=== PATIENT | female | born 1965 | race Caucasian/White ===

== ENCOUNTER → 2020-06-30 | Outpatient (CLI) | payer BC, OTHER ==
--- NOTE | 2020-06-30 14:31 | Diagnostic Imaging Report ---
INDICATION: Right hip pain COMPARISON: None. FINDINGS: 2 views of the right hip were obtained and show no fractures, dislocations, or other acute bony abnormalities. Joint spaces are well maintained throughout. The soft tissues appear unremarkable. No radiopaque foreign bodies are identified. IMPRESSION: Unremarkable radiographic exam of the right hip. Dictated by: Dictated on workstation # [id number]
--- NOTE | 2020-06-30 14:40 | Diagnostic Imaging Report ---
INDICATION: Back pain. COMPARISON: None. FINDINGS: Frontal and lateral radiographic views of the lumbar spine were obtained. Static alignment is preserved. Vertebral body heights are maintained. There is no evidence of acute fracture. There is no evidence of jumped facets. Mild multilevel degenerative changes are noted. Included small bowel loops are nondistended. IMPRESSION: 1. Mild multilevel degenerative changes in lumbar spine, but no radiographic evidence of acute fracture or dislocation. Dictated by: Dictated on workstation # [id number]
== END ==
LOC: RAD FS 14:11
PROVIDERS: ATTEND Nurse Practitioner Family
DX: M47.816 Spondylosis without myelopathy or radiculopathy, lumbar region (principal)
CPT/HCPCS: 72100; 73502

== ENCOUNTER 2020-12-05 08:04 | Emergency (ER) | payer BC ==
[~2020-12-05] VITALS: Ht 167.7 cm; Wt 84.8 kg
[2020-12-05] MEDS ORDERED: ONDANSETRON 4 MG/2 ML (SDV) Z0FRAN IVP STA (08:23)
[2020-12-05] MEDS ORDERED: NS IV 1000 ML 1,000 ML IV STA (08:23)
--- NOTE | 2020-12-05 08:29 | ED GI ---
General Chief Complaint: Abdominal/GI Problems Stated Complaint: BOWEL CONSTIPATION; ABD PAIN/BLOATING Source of Information: Patient History of Present Illness Date Seen by Provider: Dec 05, 2020 Time Seen by Provider: 08:05 Initial Comments 55 yo female presenting with complaint of constipation x 3 days and having hard pellet stools with mucus prior to that. She has diffuse abdominal cramping that is worse in lower abdomen. She also reports having some nausea but no vomiting. She was having some discomfort with urination but denied burning. She states overnight she had been up most the night with discomfort in her belly and not being able to have a bowel movement. She tried using some Dulcolax pills but they did not help. Normally if she gets constipated she will take MiraLAX but she did not have any at home and did not go to buy any to take. She states that she has a history of irritable bowel and goes from diarrhea to constipation. She has felt that she has been more constipated since starting Trintellix around August. She has subjective fever and chills this morning and was not feeling well overall so she came to the emergency department. She did eat a bit better sandwich this morning but states that she had to force herself to finish eating it because she was nauseated. She has not had any actual vomiting but was feeling a little nauseated. She has a history of diverticulosis and prior diverticulitis. She has had surgery on her abdomen with cholecystectomy, hysterectomy and hemorrhoidectomy. Timing/Duration: 3-4 Days Severity/Quality: Cramping Location: Generalized Abdomen (But worse in the lower half of her abdomen) Activities at Onset: None Modifying Factors: Worsens With Movement, Worsens With Palpation Associated Symptoms: No Back Pain, No Chest Pain, No Diaphoresis; Fever/Chills (Subjective), Fatigue (Fatigue today because she has been up all night trying to have a bowel movement and not feeling well); No Headache, No Heartburn; Nausea/Vomiting (Nausea but no vomiting); No Rash, No Shortness of Air; Swelling/Mass in Abdomen (Feels bloated and swollen in her abdomen); No Syncope, No Weakness Allergies and Home Medications Allergies Coded Allergies: Sulfa (Sulfonamide Antibiotics) (Unverified Allergy, Unknown, 12/05/20) Home Medications Amoxicillin/Potassium Clav 1 Each Tablet, 1 EACH PO BID Prescribed by: MIGUEL CAPPS on 12/05/20 1029 Ondansetron 4 Mg Tab.rapdis, 4 MG PO Q6H PRN for NAUSEA/VOMITING Prescribed by: MIGUEL Tracy ENYART on 12/05/20 1029 Polyethylene Glycol 3350 119 Gm Powder, 17 GM PO DAILY PRN for CONSTIPATION-1ST LINE Prescribed by: MIGUEL Tracy ENYART on 12/05/20 1029 Patient Home Medication List Home Medication List Reviewed: Yes Review of Systems Review of Systems Constitutional: chills, fever (Subjective), malaise EENTM: No Symptoms Reported Respiratory: No Symptoms Reported Cardiovascular: No Symptoms Reported; Denies Lightheadedness Gastrointestinal: See HPI Genitourinary: See HPI Musculoskeletal: no symptoms reported Skin: no symptoms reported Psychiatric/Neurological: No Symptoms Reported Endocrine: No Symptoms Reported Hematologic/Lymphatic: No Symptoms Reported Past Amlyiin-Jrofwu-Qgcqcp Hx Patient Social History Tobacco Use?: No Substance use?: No Alcohol Use?: Yes Alcohol Frequency: Once in a while Pt feels they are or have been: No Past Medical History Surgery/Hospitalization HX: Diverticulosis with Diverticulitis, Sinus surgery, Cholecystectomy, Hysterectomy, Hemmorrhoidectomy, Irritable Bowel Syndrome, Hypothyroid Surgeries: Yes Abdominal, Gallbladder, Hysterectomy Respiratory: No Cardiac: No Neurological: No Genitourinary: No Gastrointestinal: Yes Gastroesophageal Reflux, Diverticulosis, Hemorrhoids, Irritable Bowel Musculoskeletal: No Endocrine: Yes Hypothyroidsim HEENT: No Cancer: No Psychosocial: No Integumentary: No Physical Exam Vital Signs Vital Signs - First Documented 12/05/20 08:05 Temp 36.0 Pulse 115 Resp 16 B/P (MAP) 160/99 (119) Pulse Ox 96 O2 Delivery Room Air Capillary Refill : Height/Weight/BMI Height: '" Weight: lbs. oz. kg; BMI Method: General Appearance: WD/WN, no apparent distress HEENT: PERRL/EOMI, pharynx normal Neck: non-tender, full range of motion, supple, normal inspection Respiratory: chest non-tender, lungs clear, normal breath sounds Cardiovascular: normal peripheral pulses, tachycardia Gastrointestinal: soft, no pulsatile mass, abnormal bowel sounds (hypoactive); No guarding, No rebound; tenderness (diffuse mild pain with palpation, worse in lower half of abdomen) Rectal: deferred Extremities: normal range of motion, non-tender, normal capillary refill Neurologic/Psychiatric: educational technology specialist II-XII nml as tested, alert, oriented x 3 Skin: normal color, warm/dry Images 1 - mild diffuse pain with palpation of abdomen, but states it is worse in lower half of abdomen Focused Exam Lactate Level 12/05/20 08:20: Lactic Acid Level 2.50*H Lactic Acid Level Laboratory Tests Test 12/05/20 08:20 Lactic Acid Level 2.50 MMOL/L (0.50-2.00) *H Progress/Results/Core Measures Results/Orders Lab Results Laboratory Tests Test 12/05/20 08:20 12/05/20 08:32 Range/Units White Blood Count 10.1 4.3-11.0 10^3/uL Red Blood Count 4.06 L 4.35-5.85 10^6/uL Hemoglobin 13.1 11.5-16.0 G/DL Hematocrit 40 35-52 % Mean Corpuscular Volume 97 80-99 FL Mean Corpuscular Hemoglobin 32 25-34 PG Mean Corpuscular Hemoglobin Concent 33 32-36 G/DL Red Cell Distribution Width 14.2 10.0-14.5 % Platelet Count 224 130-400 10^3/uL Mean Platelet Volume 10.9 H 7.4-10.4 FL Immature Granulocyte % (Auto) 0 % Neutrophils (%) (Auto) 78 H 42-75 % Lymphocytes (%) (Auto) 10 L 12-44 % Monocytes (%) (Auto) 8 0-12 % Eosinophils (%) (Auto) 3 0-10 % Basophils (%) (Auto) 1 0-10 % Neutrophils # (Auto) 7.9 H 1.8-7.8 X 10^3 Lymphocytes # (Auto) 1.1 1.0-4.0 X 10^3 Monocytes # (Auto) 0.8 0.0-1.0 X 10^3 Eosinophils # (Auto) 0.3 0.0-0.3 10^3/uL Basophils # (Auto) 0.1 0.0-0.1 10^3/uL Immature Granulocyte # (Auto) 0.0 0.0-0.1 10^3/uL Sodium Level 137 135-145 MMOL/L Potassium Level 4.1 3.6-5.0 MMOL/L Chloride Level 103 98-107 MMOL/L Carbon Dioxide Level 22 21-32 MMOL/L Anion Gap 12 5-14 MMOL/L Blood Urea Nitrogen 18 7-18 MG/DL Creatinine 0.63 0.60-1.30 MG/DL Estimat Glomerular Filtration Rate > 60 BUN/Creatinine Ratio 29 Glucose Level 177 H 70-105 MG/DL Lactic Acid Level 2.50 *H 0.50-2.00 MMOL/L Calcium Level 8.9 8.5-10.1 MG/DL Corrected Calcium 8.8 8.5-10.1 MG/DL Total Bilirubin 0.2 0.1-1.0 MG/DL Aspartate Amino Transf (AST/SGOT) 27 5-34 U/L Alanine Aminotransferase (ALT/SGPT) 29 0-55 U/L Alkaline Phosphatase 126 40-136 U/L Total Protein 6.8 6.4-8.2 GM/DL Albumin 4.1 3.2-4.5 GM/DL Lipase 20 8-78 U/L Urine Color YELLOW Urine Clarity CLEAR Urine pH 5.5 5-9 Urine Specific [place] 1.025 H 1.016-1.022 Urine Protein NEGATIVE NEGATIVE Urine Glucose (UA) NEGATIVE NEGATIVE Urine Ketones NEGATIVE NEGATIVE Urine Nitrite NEGATIVE NEGATIVE Urine Bilirubin NEGATIVE NEGATIVE Urine Urobilinogen 0.2 < = 1.0 MG/DL Urine Leukocyte Esterase NEGATIVE NEGATIVE Urine RBC (Auto) 2+ H NEGATIVE Urine RBC 0-2 /HPF Urine WBC NONE /HPF Urine Squamous Epithelial Cells 0-2 /HPF Urine Crystals NONE /LPF Urine Bacteria NEGATIVE /HPF Urine Casts NONE /LPF Urine Mucus NEGATIVE /LPF Urine Culture Indicated NO My Orders Orders - MIGUEL CAPPS MD Comprehensive Metabolic Panel (12/05/20 08:21) Lipase (12/05/20 08:21) Ua Culture If Indicated (12/05/20 08:21) Ed Iv/Invasive Line Start (12/05/20 08:21) Cbc With Automated Diff (12/05/20 08:21) Ct Abdomen/Pelvis W (12/05/20 08:21) Lactic Acid Analyzer (12/05/20 08:21) Ns Iv 1000 Ml (Sodium Chloride 0.9%) (12/05/20 08:23) Ondansetron Injection (Zofran Injectio (12/05/20 08:23) Iohexol Injection (Omnipaque 350 Mg/Ml 1 (12/05/20 09:00) Received Contrast (Hold Metformin- Contr (12/05/20 09:00) Sodium Chloride Flush (Catheter Flush Sy (12/05/20 09:00) Ns (Ivpb) (Sodium Chloride 0.9% Ivpb Bag (12/05/20 09:00) Medications Given in ED Current Medications Medications Dose Ordered Sig/Jayce Route Start Time Stop Time Status Last Admin Dose Admin Iohexol 100 ml ONCE ONCE IV 12/05/20 09:00 12/05/20 09:01 DC 12/05/20 09:19 100 ML Sodium Chloride 10 ml NEEDED PRN IV 12/05/20 09:00 12/05/20 10:42 DC 12/05/20 09:19 10 ML Sodium Chloride 100 ml ONCE ONCE IV 12/05/20 09:00 12/05/20 09:01 DC 12/05/20 09:19 80 ML Vital Signs/I&O 12/05/20 12/05/20 08:05 10:34 Temp 36.0 36.0 Pulse 115 93 Resp 16 18 B/P (MAP) 160/99 (119) 146/93 (119) Pulse Ox 96 96 O2 Delivery Room Air Room Air Progress Progress Note #1: Progress Note Check labs, urine, lactic acid and CT scan of abdomen pelvis. Give IVF for hydration, Zofran for nausea. Since she is tachycardic on exam and complaining of diffuse abdominal cramping and bloating with mucus mixed in with her stools prior to the constipation and a history of diverticulosis/diverticulitis we will obtain blood work with a lactic acid to evaluate for ischemic bowel or sepsis. CT scan will help to differentiate if this is constipation alone or if there is inflammation of the colon or bowel. Differential diagnosis includes constipation, diverticulitis, colitis, uti, pyelonephritis, ischemic bowel, abdominal mass/obstruction, small bowel obstruction Progress Note #2: Time: 08:56 Progress Note Lab called and stated her Lactic acid was slightly elevated to 2.5. She does sh ow some signs of dehydration which can elevate this. Her UA has elevated specific gravity of 1.025 but no sign of infection. Her CBC has normal WBC count of 10.1 but she does have a slight left shift present with 78 % neutrophils. She has Chemistry showing no acute significant abnormality other than glucose is slightly elevated to 170 but pt did say she ate a peanut butter sandwich just before coming to the ED. Normal BUN, Cr and GFR >60. Will see what her CT scan shows and she may need antibiotics for a possible diverticulitis or may j ust need to drink more fluids and take Miralax to help with her stools. Progress Note #3: Progress Note CT scan shows bowel wall thickening at sigmoid area and Radiologist recommends colonoscopy to follow up for evaluation of colon for mass/cancer. Since she had reported pellets of stool and mucus prior to constipation will have her take antibiotic for possible early diverticulitis but also supervisor counseling and guidance pt to follow up for colonoscopy to evaluate the bowel wall thickening. Use Augmentin for treat for diverticulitis but would also have a side effect of possible diarrhea. Stressed use of MiraLAX and advised that she can use it with a dose every 1 to 2 hours today to get her bowels to move. Once she is having bowel movements she ca n hold Miralax and take it daily. Diagnostic Imaging Diagonstic Imaging: CT Plain Films/CT/US/NM/MRI: abdomen, pelvis Comments [facility]. [place], [place] NAME: DYLAN [facility]ERS [facility] REC#: [id number] PT STATUS: REG ER : 1965 PHYSICIAN: MIGUEL CAPPS MD ADMIT DATE: 12/05/20/ER FS Draft Date of Exam:12/05/20 CT ABDOMEN/PELVIS W EXAMINATION: CT abdomen and pelvis with intravenous contrast. TECHNIQUE: Multiple contiguous axial images were obtained through the abdomen and pelvis after the uneventful administration of intravenous contrast. All CT scans use one or more of the following dose optimizing techniques: automated exposure control, MA and/or KvP adjustment based on patient size and exam type or iterative reconstruction. HISTORY: Abdominal pain COMPARISON: None available. FINDINGS: Limited views of the lower thorax are unremarkable. The liver is normal without focal lesion. There is no biliary ductal dilation. Gallbladder surgically absent. Pancreas is normal. Spleen is normal. Adrenal glands are normal. The kidneys are normal. There is no hydronephrosis. Urinary bladder is normal. There is focal area of wall thickening at the rectosigmoid junction. Remaining bowel is normal in caliber without obstruction or inflammation. Large amount of stool is present in the colon. No free fluid or air. No abdominal or pelvic lymphadenopathy. Aorta is normal in caliber without aneurysm. There are no suspicious osseus lesions. IMPRESSION: 1. Focal wall thickening at the rectosigmoid junction, colonoscopic evaluation is recommended to exclude an underlying malignancy. Dictated on workstation # [id number] Dict: 12/05/2024 Trans: 12/05/20 0929 SUDHA [id number] Interpreted by: HOA REEVES MD Electronically signed by: Reviewed: Reviewed by Me Departure Impression Primary Impression: Constipation Qualified Codes: K59.00 - Constipation, unspecified Additional Impressions: Abdominal cramping, generalized Sigmoid thickening Disposition: HOME, SELF-CARE Condition: Stable Departure-Patient Inst. Decision time for Depature: 10:21 Referrals: FARHAT GARCIA MAXWELL MD (PCP/Family) Primary Care Physician Patient Instructions: Constipation, Adult ED, Abdominal Pain, Adult ED Add. Discharge Instructions: For the bowel wall thickening take Augmentin (Amoxicillin/clavulanic acid) as an antibiotic to treat for possible early diverticulitis. You MUST also call your doctor or a surgeon for follow up and to get an updated colonoscopy for this bowel wall thickening of the sigmoid area of your colon. If it is more than just some early infection then you would need the colonoscopy to evaluate and rule out a mass or tumor in that area of the colon. For the constipation you may take Miralax 17 grams or 1 capful in 8 ounces of water or juice. Today you could take this every 1-2 hours until you have results and start having your bowels move. Then you could decrease to once a day. Use the Zofran dissolving nausea medicine to help keep your stomach settled and ensure you are drinking and getting your bowels moving. If you develop fever over 101 F, uncontrolled vomiting despite medicine or uncontrollable pain and still not having your bowels move after 12-24 hours then get rechecked All discharge instructions reviewed with patient and/or family. Voiced understanding. Scripts Polyethylene Glycol 3350 (Miralax) 119 Gm Powder 17 GM PO DAILY PRN for CONSTIPATION-1ST LINE for 30 Days, #510 GM 0 Refills Prov: MIGUEL CAPPS MD 12/05/20 Amoxicillin/Potassium Clav (Amox Tr-K Clv 875-125 mg Tab) 1 Each Tablet 1 EACH PO BID for bowel thickening for 10 Days, #20 TAB 0 Refills Prov: MIGUEL CAPPS MD 12/05/20 Ondansetron (Ondansetron Odt) 4 Mg Tab.rapdis 4 MG PO Q6H PRN for NAUSEA/VOMITING for 2 Days, #8 TAB 0 Refills Prov: MIGUEL CAPPS MD 12/05/20 MIGUEL CAPPS MD Dec 05, 2020 08:29
[2020-12-05 08:34] LABS: HEMATOCRIT 40 % (35-52); HEMOGLOBIN 13.1 G/DL (11.5-16.0); MEAN CORPUSCULAR HEMOGLOBIN 32 PG (25-34); MEAN CORPUSCULAR HGB CONC 33 G/DL (32-36); MEAN CORPUSCULAR VOLUME 97 FL (80-99); MEAN PLATELET VOLUME 10.9 FL (7.4-10.4); NEUTROPHILS % (AUTO) 78 % (42-75); PLATELET COUNT 224 10^3/uL (130-400); WHITE BLOOD COUNT 10.1 10^3/uL (4.3-11.0)
[2020-12-05 08:35] LABS: BASOPHILS # (AUTO) 0.1 10^3/uL (0.0-0.1); BASOPHILS % (AUTO) 1 % (0-10); EOSINOPHILS # (AUTO) 0.3 10^3/uL (0.0-0.3); EOSINOPHILS % (AUTO) 3 % (0-10); LYMPHOCYTES # (AUTO) 1.1 X 10^3 (1.0-4.0); LYMPHOCYTES % (AUTO) 10 % (12-44); MONOCYTES # (AUTO) 0.8 X 10^3 (0.0-1.0); MONOCYTES % (AUTO) 8 % (0-12); NEUTROPHILS # (AUTO) 7.9 X 10^3 (1.8-7.8)
[2020-12-05 08:44] LABS: BILIRUBIN,URINE NEGATIVE (NEGATIVE); CLARITY,URINE CLEAR; COLOR,URINE YELLOW; GLUCOSE, URINE (UA) NEGATIVE (NEGATIVE); KETONES,URINE NEGATIVE (NEGATIVE); LEUKOCYTE ESTERASE ,URINE NEGATIVE (NEGATIVE); NITRITE,URINE NEGATIVE (NEGATIVE); PH,URINE 5.5 (5-9); PROTEIN,URINE NEGATIVE (NEGATIVE)
[2020-12-05 08:51] LABS: RBC,URINE 0-2 /HPF
[2020-12-05 08:52] LABS: BACTERIA,URINE NEGATIVE /HPF; SQUAMOUS EPITHELIAL CELL,UR 0-2 /HPF
[2020-12-05 08:54] LABS: ALANINE AMINOTRANSFERASE 29 U/L (0-55); ALBUMIN 4.1 GM/DL (3.2-4.5); ALKALINE PHOSPHATASE 126 U/L (40-136); BILIRUBIN,TOTAL 0.2 MG/DL (0.1-1.0); BUN/CREATININE RATIO 29; CALCIUM 8.9 MG/DL (8.5-10.1); CARBON DIOXIDE 22 MMOL/L (21-32); CHLORIDE 103 MMOL/L (98-107); CREATININE SERUM 0.63 MG/DL (0.60-1.30); GFR ESTIMATED > 60; GLUCOSE 177 MG/DL (70-105); LIPASE 20 U/L (8-78); POTASSIUM 4.1 MMOL/L (3.6-5.0); SODIUM 137 MMOL/L (135-145); TOTAL PROTEIN 6.8 GM/DL (6.4-8.2)
[2020-12-05] MEDS ORDERED: CATHETER FLUSH 10 ML SYR IV PRN (09:00)
[2020-12-05] MEDS ORDERED: NS 100 ML (IVPB) BAG IV ONE (09:00)
[2020-12-05] MEDS ORDERED: IOHEXOL 350 MG/ML 100 ML (OMNIPAQUE 350) VIAL IV ONE (09:00)
[2020-12-05] MEDS ORDERED: HOLD METFORMIN - RECEIVED CONTRAST 20 ML VIAL IV SCH (09:00)
--- NOTE | 2020-12-05 09:29 | Diagnostic Imaging Report ---
EXAMINATION: CT abdomen and pelvis with intravenous contrast. TECHNIQUE: Multiple contiguous axial images were obtained through the abdomen and pelvis after the uneventful administration of intravenous contrast. All CT scans use one or more of the following dose optimizing techniques: automated exposure control, MA and/or KvP adjustment based on patient size and exam type or iterative reconstruction. HISTORY: Abdominal pain COMPARISON: None available. FINDINGS: Limited views of the lower thorax are unremarkable. The liver is normal without focal lesion. There is no biliary ductal dilation. Gallbladder surgically absent. Pancreas is normal. Spleen is normal. Adrenal glands are normal. The kidneys are normal. There is no hydronephrosis. Urinary bladder is normal. There is focal area of wall thickening at the rectosigmoid junction. Remaining bowel is normal in caliber without obstruction or inflammation. Large amount of stool is present in the colon. No free fluid or air. No abdominal or pelvic lymphadenopathy. Aorta is normal in caliber without aneurysm. There are no suspicious osseus lesions. IMPRESSION: 1. Focal wall thickening at the rectosigmoid junction, colonoscopic evaluation is recommended to exclude an underlying malignancy. Dictated by: Dictated on workstation # [id number]
[2020-12-05] MEDS ORDERED: ONDA4TAB11 PO (10:29)
[2020-12-05] MEDS ORDERED: POLY119P5 PO (10:29)
[2020-12-05] MEDS ORDERED: AMOX1TAB12 PO (10:29)
[2020-12-05 10:34] VITALS: BP 146/93
== END 2020-12-05 10:34 | disposition home or self-care (01) ==
LOC: EDUNIT# 08:04 → ER FS 08:07
DX: K59.00 Constipation, unspecified (principal); K63.89 Other specified diseases of intestine
CPT/HCPCS: 36415; 74177; 80053; 81000; 83605; 83690; 85025

== ENCOUNTER 2020-12-06 22:13 | Inpatient (IN) | payer BC ==
[~2020-12-06] VITALS: Ht 167.2 cm; Wt 85.6 kg
[~2020-12-06 22:13] MED LIST: AMOX1TAB12 PO; ONDA4TAB11 PO; POLY119P5 PO
--- NOTE | 2020-12-06 22:38 | ED General ---
General Chief Complaint: Abdominal/GI Problems Stated Complaint: ABD PAIN Nursing Triage Note: Patient was seen in the ER yesterday for the same issue. Patient states that she had a CT done and it stated that she had a lot of feces. Patient went home and did stool softners, Fleet enemas and mirilax with no result. Patient does not know when her last bowel movement was. Patient states that her pain is a 10 on the 1-10 pain scale. History of Present Illness Date Seen by Provider: Dec 06, 2020 Time Seen by Provider: 22:37 Initial Comments Patient presenting to the emergency department for evaluation of worsening abdominal pain that has been going on for 5 days and she says it is constant crampy and worse in the bilateral lower quadrants and mid abdomen. She says she has had nausea but no vomiting. She says she has only had very small bowel movements but no regular bowel movements in the last 7 days. She was seen in this emergency department yesterday and had a CT scan done which showed a large amount of constipation and stool with possible rectosigmoid mass. Radiologist recommended colonoscopy. Patient was discharged on Augmentin Zofran and MiraLAX and the patient has been doing enemas and taking magnesium at home and she says she has had no relief in her constipation or abdominal pain. She is dry heaving in the room. Allergies and Home Medications Allergies Coded Allergies: Sulfa (Sulfonamide Antibiotics) (Unverified Allergy, Unknown, 12/05/20) Home Medications Amoxicillin/Potassium Clav 1 Each Tablet, 1 EACH PO BID Prescribed by: MIGUEL Tracy ENYART on 12/05/20 1029 Ondansetron 4 Mg Tab.rapdis, 4 MG PO Q6H PRN for NAUSEA/VOMITING Prescribed by: MIGUEL Tracy ENYART on 12/05/20 1029 Polyethylene Glycol 3350 119 Gm Powder, 17 GM PO DAILY PRN for CONSTIPATION-1ST LINE Prescribed by: MIGUEL Tracy ENYART on 12/05/20 1029 Patient Home Medication List Home Medication List Reviewed: Yes Review of Systems Review of Systems Constitutional: no symptoms reported EENTM: no symptoms reported Respiratory: no symptoms reported Cardiovascular: no symptoms reported Gastrointestinal: abdominal pain, constipation, nausea Genitourinary: no symptoms reported Musculoskeletal: no symptoms reported Skin: no symptoms reported Psychiatric/Neurological: No Symptoms Reported All Other Systems Reviewed Negative Unless Noted: Yes Past Jzzhvza-Tjquvf-Qfspbr Hx Patient Social History Tobacco Use?: No Substance use?: No Alcohol Use?: No Pt feels they are or have been: No Past Medical History Surgery/Hospitalization HX: Diverticulosis with Diverticulitis, Sinus surgery, Cholecystectomy, Hysterectomy, Hemmorrhoidectomy, Irritable Bowel Syndrome, Hypothyroid Surgeries: Yes Abdominal, Gallbladder, Hysterectomy Respiratory: No Cardiac: No Neurological: No Genitourinary: No Gastrointestinal: Yes Gastroesophageal Reflux, Diverticulosis, Hemorrhoids, Irritable Bowel Musculoskeletal: No Endocrine: Yes Hypothyroidsim HEENT: No Cancer: No Psychosocial: No Integumentary: No Physical Exam Vital Signs Vital Signs - First Documented 12/06/20 22:17 Temp 36.1 Pulse 111 Resp 16 B/P (MAP) 130/83 (99) Pulse Ox 96 O2 Delivery Room Air Capillary Refill : Less Than 3 Seconds Height, Weight, BMI Height: '" Weight: lbs. oz. kg; 30.00 BMI Method: General Appearance: No Apparent Distress, Other (Dry heaving) HEENT: PERRL/EOMI Neck: Supple Respiratory: Lungs Clear, No Respiratory Distress Cardiovascular: Regular Rate, Rhythm Gastrointestinal: Soft, Other (Diffuse lower abdominal tenderness to palpation with no rebound or guarding) Rectal: Other (No stool palpated and no impaction noted on rectal exam. No significant tenderness to palpation) Back: Normal Inspection Extremity: Normal Capillary Refill Neurologic/Psychiatric: Alert, Oriented x3 Skin: Warm/Dry Progress/Results/Core Measures Suspected Sepsis SIRS Temperature: Pulse: 111 Respiratory Rate: 16 Laboratory Tests 12/06/20 22:42: White Blood Count 15.4H Blood Pressure 130 /83 Mean: 99 Laboratory Tests 12/06/20 22:42: Platelet Count 261 Results/Orders Lab Results Laboratory Tests Test 12/06/20 22:42 Range/Units White Blood Count 15.4 H 4.3-11.0 10^3/uL Red Blood Count 4.32 L 4.35-5.85 10^6/uL Hemoglobin 13.7 11.5-16.0 G/DL Hematocrit 42 35-52 % Mean Corpuscular Volume 98 80-99 FL Mean Corpuscular Hemoglobin 32 25-34 PG Mean Corpuscular Hemoglobin Concent 32 32-36 G/DL Red Cell Distribution Width 14.5 10.0-14.5 % Platelet Count 261 130-400 10^3/uL Mean Platelet Volume 11.3 H 7.4-10.4 FL Immature Granulocyte % (Auto) 0 % Neutrophils (%) (Auto) 71 42-75 % Lymphocytes (%) (Auto) 15 12-44 % Monocytes (%) (Auto) 11 0-12 % Eosinophils (%) (Auto) 2 0-10 % Basophils (%) (Auto) 0 0-10 % Neutrophils # (Auto) 10.9 H 1.8-7.8 X 10^3 Lymphocytes # (Auto) 2.3 1.0-4.0 X 10^3 Monocytes # (Auto) 1.7 H 0.0-1.0 X 10^3 Eosinophils # (Auto) 0.3 0.0-0.3 10^3/uL Basophils # (Auto) 0.1 0.0-0.1 10^3/uL Immature Granulocyte # (Auto) 0.1 0.0-0.1 10^3/uL Smear Scan My Orders Orders - DAISY ESPINO DO Cbc With Automated Diff (12/06/20 22:38) Comprehensive Metabolic Panel (12/06/20 22:38) Lipase (12/06/20 22:38) Iv/Invasive Line Insertion .IV start (12/06/20 22:38) Ns Iv 1000 Ml (Sodium Chloride 0.9%) (12/06/20 22:45) Ondansetron Injection (Zofran Injectio (12/06/20 22:45) Hydromorphone Injection (Dilaudid Inject (12/06/20 22:45) Manual Differential (12/06/20 22:42) Medications Given in ED Current Medications Medications Dose Ordered Sig/Jayce Route Start Time Stop Time Status Last Admin Dose Admin Hydromorphone HCl 1 mg ONCE ONCE IVP 12/06/20 22:45 12/06/20 22:46 DC 12/06/20 22:49 1 MG Ondansetron HCl 4 mg ONCE ONCE IVP 12/06/20 22:45 12/06/20 22:46 DC 12/06/20 22:47 4 MG Vital Signs/I&O 12/06/20 22:17 Temp 36.1 Pulse 111 Resp 16 B/P (MAP) 130/83 (99) Pulse Ox 96 O2 Delivery Room Air Capillary Refill : Less Than 3 Seconds Blood Pressure Mean: 99 Progress Note : Progress Note Patient here essentially for failure of outpatient treatment and intractable pain. She has unrelieved constipation and may have a rectosigmoid mass. Patient does have slightly worsened leukocytosis but no fever. Her pain has not changed in location or character so I will not pursue repeat imaging especially since her abdominal exam is benign with no focal tenderness rebound or guarding. I spoke to Dr. LÓPEZ of general surgery and he agreed to accept patient for bowel prep tomorrow in anticipation of possible colonoscopy. I spoke to Dr. Milton and she agreed to consult on patient for medical perspective in regards to her hypothyroidism. Patient has improved pain in the emergency department and she has had no active vomiting so she will be transferred in stable condition to [place] [facility]. Departure Impression Primary Impression: Intractable abdominal pain Additional Impressions: Failure of outpatient treatment Leukocytosis Constipation Disposition: ADMITTED INPATIENT Condition: Improved Transfer Transfer Reason: Exceeds level of care Transfer Facility: [facility] Method of Transfer: EMS Departure-Patient Inst. Referrals: SELF,JODI PRICE (PCP/Family) Primary Care Physician DAISY ESPINO DO Dec 06, 2020 22:38
[2020-12-06] MEDS ORDERED: NS IV 1000 ML 1,000 ML IV SCH (22:45)
[2020-12-06] MEDS ORDERED: ONDANSETRON 4 MG/2 ML (SDV) Z0FRAN IVP ONE (22:45)
[2020-12-06] MEDS ORDERED: HYDROmorphone 2 MG/ML VIAL (DILAUDID) IVP ONE (22:45)
[2020-12-06 23:13] LABS: BASOPHILS % (AUTO) 0 % (0-10); EOSINOPHILS % (AUTO) 2 % (0-10); HEMATOCRIT 42 % (35-52); HEMOGLOBIN 13.7 G/DL (11.5-16.0); LYMPHOCYTES % (AUTO) 15 % (12-44); MEAN CORPUSCULAR HEMOGLOBIN 32 PG (25-34); MEAN CORPUSCULAR HGB CONC 32 G/DL (32-36); MEAN CORPUSCULAR VOLUME 98 FL (80-99); MEAN PLATELET VOLUME 11.3 FL (7.4-10.4); MONOCYTES % (AUTO) 11 % (0-12); NEUTROPHILS % (AUTO) 71 % (42-75); PLATELET COUNT 261 10^3/uL (130-400); WHITE BLOOD COUNT 15.4 10^3/uL (4.3-11.0)
[2020-12-06 23:14] LABS: BASOPHILS # (AUTO) 0.1 10^3/uL (0.0-0.1); EOSINOPHILS # (AUTO) 0.3 10^3/uL (0.0-0.3); LYMPHOCYTES # (AUTO) 2.3 X 10^3 (1.0-4.0); MONOCYTES # (AUTO) 1.7 X 10^3 (0.0-1.0); NEUTROPHILS # (AUTO) 10.9 X 10^3 (1.8-7.8)
[2020-12-06 23:41] LABS: CHLORIDE 100 MMOL/L (98-107); POTASSIUM 4.3 MMOL/L (3.6-5.0); SODIUM 138 MMOL/L (135-145)
[2020-12-06 23:42] LABS: BILIRUBIN,TOTAL 0.5 MG/DL (0.1-1.0); BUN/CREATININE RATIO 13; CARBON DIOXIDE 28 MMOL/L (21-32); GFR ESTIMATED > 60; GLUCOSE 139 MG/DL (70-105)
[2020-12-06 23:43] LABS: ALANINE AMINOTRANSFERASE 70 U/L (0-55); ALBUMIN 4.1 GM/DL (3.2-4.5); ALKALINE PHOSPHATASE 136 U/L (40-136); TOTAL PROTEIN 6.9 GM/DL (6.4-8.2)
[2020-12-06 23:56] LABS: LYMPHOCYTES % (MANUAL) 13 %; NEUTROPHILS % (MANUAL) 73 %
[2020-12-06 23:57] LABS: ATYPICAL LYMPHOCYTES 1 %; BASOPHILS % (MANUAL) 1 %; EOSINOPHILS % (MANUAL) 1 %; MONOCYTES % (MANUAL) 11 %; PLATELET ESTIMATE ADEQUATE; RBC MORPH NORMAL
[2020-12-07] VITALS (7 sets, daily range): BP systolic 102–123; BP diastolic 69–84
[2020-12-07] MEDS ORDERED: ONDANSETRON 4 MG/2 ML (SDV) Z0FRAN IVP PRN (02:00)
[2020-12-07] MEDS: NS IV 1000 ML 1,000 ML IV SCH ×4 (02:17→22:50)
[2020-12-07] MEDS: HYDROmorphone 2 MG/ML VIAL (DILAUDID) IVP PRN ×4 (02:18→22:56)
[2020-12-07 02:46] LABS: LIPASE 13 U/L (8-78)
[2020-12-07] MEDS ORDERED: MELO15TA39 PO (06:51)
[2020-12-07] MEDS ORDERED: OMEP20CA18 PO (06:51)
[2020-12-07] MEDS ORDERED: LEVO125T6 PO (06:51)
[2020-12-07] MEDS ORDERED: VORT20TA PO (06:51)
[2020-12-07] MEDS ORDERED: CETI10TA49 PO (06:52)
[2020-12-07] MEDS: polyethylene glycoL POWDER 17 GM (MIRALAX) PACK PO SCH ×2 (08:01→20:13)
[2020-12-07] MEDS ORDERED: ASPI-992 PO (09:35)
[2020-12-07] MEDS ORDERED: CHOL100045 PO (09:35)
[2020-12-07] MEDS ORDERED: POLY238P32 PO (09:35)
[2020-12-07] MEDS ORDERED: CALC-823 PO (09:35)
[2020-12-07] MEDS ORDERED: DOCU100C37 PO (09:35)
[2020-12-07] MEDS ORDERED: LEVO150T96 PO (09:35)
[2020-12-07] MEDS ORDERED: AMOX1TAB12 PO (09:35)
--- NOTE | 2020-12-07 10:17 | Consultation - Hospitalist ---
ALFONSO BRUSH MED STUDENT 12/07/20 1017: HPI History of Present Illness: HPI/Chief Complaint This is a 55 YO female with history of IBS, depression, and hypothyroidism who came to the [place] ER for abdominal pain, constipation, and dry heaving. Pt states she she began having small, hard BM's in September after she changed depression medications. She has been taking Metamucil, which has helped, but last week got busy and forgot to take it. She has been having the constipation and lower abdominal pain since last week, but yesterday began having nausea and dry heaving, so she went to the ER. CT abdomen/pelvis in the ER showed large amount of constipation and wall thickening at the rectosigmoid junction. Denies fever or bloody stools, but had some diaphoresis with the pain. Has been able to have small liquid BM's since admission. Had a colonoscopy 10 years ago for her IBS that was negative. Source: patient, RN/MD Exam Limitations: no limitations Date Seen 12/07/20 Attending Physician Hill Juan MD PCP Malik Yarbrough MD Referring Physician Date of Admission Dec 07, 2020 at 01:45 Home Medications & Allergies Home Medications Reviewed patient Home Medication Reconciliation performed by pharmacy medication reconciliations snow technician and/or nursing. Patients Allergies have been reviewed. Allergies Allergies Coded Allergies Sulfa (Sulfonamide Antibiotics) (Unverified Allergy, Unknown, 12/05/20) Past Skeywlg-Fosnxn-Jahmzz Hx Patient Social History Tobacco Use?: No Smoking Status: Never a Smoker Substance use?: No Alcohol Use?: No Pt feels they are or have been: No Current Status Advance Directives: No Communicates: Verbally Primary Language: Bulgarian Preferred Spoken Language: Bulgarian Is interpretation needed?: No Implanted or Applied Medical D: None Past Medical History Surgeries: Abdominal, Gallbladder, Hysterectomy Gastroesophageal Reflux, Diverticulosis, Hemorrhoids, Irritable Bowel Hypothyroidsim Review of Systems Constitutional: No chills, No fever EENTM: no symptoms reported Respiratory: No cough, No short of breath Cardiovascular: No chest pain, No edema Gastrointestinal: constipation, nausea, other (lower abdominal pain) Genitourinary: no symptoms reported Musculoskeletal: no symptoms reported Skin: no symptoms reported Psychiatric/Neurological: No Symptoms Reported All Other Systems Reviewed Negative Unless Noted: Yes (Negative excepted noted.) Physical Exam Physical Exam Vital Signs Vital Signs - First Documented 12/06/20 22:17 Temp 36.1 Pulse 111 Resp 16 B/P (MAP) 130/83 (99) Pulse Ox 96 O2 Delivery Room Air Capillary Refill : Less Than 3 Seconds Height, Weight, BMI Height: '" Weight: lbs. oz. kg; 30.61 BMI Method: General Appearance: No Apparent Distress, WD/WN, Other Respiratory: Lungs Clear, Normal Breath Sounds, No Accessory Muscle Use, No Respiratory Distress Cardiovascular: Regular Rate, Rhythm, No Edema Gastrointestinal: Soft, Distended, Other (diffuse abdominal tenderness, worst in lower abdomen; active bowel sounds) Extremity: No Calf Tenderness, No Pedal Edema Neurologic/Psychiatric: Alert, Oriented x3, No Motor/Sensory Deficits, Normal Mood/Affect Skin: Normal Color, Warm/Dry Results Results/Procedures Labs Laboratory Tests 12/06/20 22:42 Patient resulted labs reviewed. Imaging: Reviewed Imaging Report Assessment/Plan Assessment and Plan Assess & Plan/Chief Complaint constipation Miralax Zofran clear liquid diet pain control Managed by Dr. Juan hypothyroidism continue home meds IBS GLORIA ZAIDI MD 12/07/20 1650: Assessment/Plan Assessment and Plan Assess & Plan/Chief Complaint Rectosigmoid thickening found on CT. Surgery primary, planning for colonoscopy. Increase bowel regimen. Thank you for the consult. We will continue to round as needed. Diagnosis/Problems Diagnosis/Problems (1) Sigmoid thickening Status: Acute (2) Constipation Status: Acute Supervisory-Addendum Brief Verification & Attestation Participated in pt care: history, MDM, physical Personally performed: exam, history, MDM, supervision of care Care discussed with: Medical Student Procedures: n/a Results interpretation: Verified all documentation A medical student performed and documented this service. I then reviewed and verified all information documented by the medical student and made modification s to such information, when appropriate. I personally performed a history, physical exam, and performed medical decision making. ALFONSO BRUSH MED STUDENT Dec 07, 2020 10:17 GLORIA ZAIDI MD Dec 07, 2020 16:50
[2020-12-07] MEDS ORDERED: polyethylene glycoL POWDER 17 GM (MIRALAX) PACK PO PRN (13:45)
[2020-12-07] MEDS ORDERED: CALCIUM CARBONATE 500 MG (TUMS) TAB.CHEW PO PRN (15:00)
[2020-12-07] MEDS: LACTULOSE SYRUP 10GM/15ML (ENULOSE) 30ML UDC PO SCH ×2 (16:26→20:14)
[2020-12-07] MEDS ORDERED: BISACODYL 10 MG SUPP (DULCOLAX) PR PRN (17:00)
[2020-12-07] MEDS ORDERED: diphenhydrAMINE 25 MG TAB (BENADRYL) PO PRN (17:00)
[2020-12-07] MEDS ORDERED: MELATONIN 3 MG TABLET PO PRN (17:00)
[2020-12-07] MEDS ORDERED: PANTOPRAZOLE 40 MG (PROTONIX) VIAL IV NR (17:00)
[2020-12-07] MEDS ORDERED: MILK OF MAGNESIA 400 MG/5 ML 30 ML UDC PO PRN (17:00)
[2020-12-07] MEDS: ACETAMINOPHEN 500 MG TAB (TYLENOL) PO PRN (17:07)
--- NOTE | 2020-12-07 18:15 | Progress Note-Pre Operative ---
Pre-Operative Progress Note H&P Reviewed The H&P was reviewed, patient examined and no changes noted. Date Seen by Provider: Dec 07, 2020 Time Seen by Provider: 18:00 Date H&P Reviewed: Dec 07, 2020 Time H&P Reviewed: 18:00 Pre-Operative Diagnosis: obstipation, rectosigmoid lesion RANJITH LÓPEZ MD Dec 07, 2020 18:15
--- NOTE | 2020-12-07 18:23 | HISTORY AND PHYSICAL ---
DATE OF SERVICE: 12/07/2020 DATE OF PROCEDURE: 12/07/2020. ATTENDING PRIMARY CARE PHYSICIAN: Dr. Malik Yarbrough. HISTORY OF PRESENT ILLNESS: The patient is a 55-year-old female with history of constipation predominantly irritable bowel syndrome, who presented to [facility] induced consecutive days. She reported abdominal distention and inability to have a bowel movement. She was started on MiraLax as well as Colace; however, continued to be unable to have a bowel movement. On her first admission, a CT scan was performed, which did show a large amount of constipated stool as well as some slight thickening of the rectosigmoid junction. She did have a colonoscopy approximately 10 years ago, which she believes to be negative. She does not report any red blood per rectum nor any dark tarry stools. She also does not report any family history of colon cancer. PAST MEDICAL HISTORY: Hypothyroid, constipation predominant, irritable bowel syndrome, gastroesophageal reflux disease, diverticulosis. PAST SURGICAL HISTORY: Hysterectomy, cholecystectomy, tonsillectomy. ALLERGIES: SULFA. MEDICATIONS: Synthroid 150 mcg daily. SOCIAL HISTORY: Negative smoke, negative alcohol. FAMILY HISTORY: Father, multiple myeloma. VITAL SIGNS: Temperature 35.9, blood pressure 106/69, pulse 93, respirations 18, pulse ox 96% on room air. REVIEW OF SYSTEMS: This is a well-nourished female, currently in no acute distress. She is not experiencing any shortness of breath or difficulty breathing. No chest pain, palpitations, diaphoresis. Mild nausea, no vomiting. She is experiencing abdominal distention. She is passing some flatus; however, has not had a bowel movement for several days. No known red blood per rectum, no dark tarry stools. No fever, chills, no recent inadvertent weight loss. All other review of systems negative. PHYSICAL EXAMINATION: CHEST: Clear. Good breath sounds bilaterally. HEART: Regular, no murmurs. EXTREMITIES: No lower extremity edema, negative Homans sign. HEENT: No scleral icterus. NECK: No cervical lymphadenopathy. ABDOMEN: Soft, distended. There is a mild diffuse pain upon palpation. No peritoneal signs. No hernias palpable. SKIN: Warm, dry. LABORATORY DATA: WBC 15.4, hemoglobin 13.7, hematocrit 42, platelets 261. BUN 10, creatinine 0.80. ASSESSMENT AND PLAN: A 55-year-old female with obstipation with abdominal distention. She was started on lactulose today in hopes of allowing for resolution of the constipation and we will also proceed with a sigmoidoscopy as well as possible colonoscopy on this admission. Job ID: [id number] DocumentID: [id number] Dictated Date: 12/07/2020 18:10:09 Manager Mobility Date: 12/07/2020 18:22:20 Dictated By: RANJITH LÓPEZ MD
[2020-12-07] MEDS: DOCUSATE SODIUM 100 MG (COLACE) CAP PO SCH (20:12)
[2020-12-08] VITALS (7 sets, daily range): BP systolic 109–131; BP diastolic 72–90
[2020-12-08] MEDS: NS IV 1000 ML 1,000 ML IV SCH ×2 (04:51→11:31)
[2020-12-08] MEDS ORDERED: LEVOTHYROXINE 150 MCG (LEVOTHROID) TAB PO SCH (06:30)
[2020-12-08] MEDS: DOCUSATE SODIUM 100 MG (COLACE) CAP PO SCH ×2 (08:44→11:29)
[2020-12-08] MEDS: LACTULOSE SYRUP 10GM/15ML (ENULOSE) 30ML UDC PO SCH ×2 (08:44→11:29)
[2020-12-08] MEDS: polyethylene glycoL POWDER 17 GM (MIRALAX) PACK PO SCH ×2 (08:44→11:29)
[2020-12-08] MEDS: ACETAMINOPHEN 500 MG TAB (TYLENOL) PO PRN (08:44)
[2020-12-08] MEDS ORDERED: PANTOPRAZOLE 40 MG (PROTONIX) VIAL IV SCH (09:00)
[2020-12-08] MEDS ORDERED: LIDOCAINE JELLY 2% 6 ML SYRINGE ONE (12:26)
[2020-12-08] MEDS ORDERED: LACTATED RINGERS 1,000 ML IV ONE (12:26)
[2020-12-08] MEDS ORDERED: MIDAZOLAM 2 MG/2 ML (VERSED) VIAL ONE (12:29)
[2020-12-08] MEDS ORDERED: proPOfol 200 MG/20 ML (DIPRIVAN) VIAL IV ONE ×2 (12:30→13:01)
--- NOTE | 2020-12-08 13:21 | Progress Note-Post Operative ---
Post-Operative Progess Note Surgeon (s)/Shoe Cutter (s) Surgeon RANJITH LÓPEZ MD Shoe Cutter: none Pre-Operative Diagnosis obstipation, rectosigmoid lesion Post-Operative Diagnosis acute sigmoid diverticulosis and diverticulitis. Procedure & Operative Findings Date of Procedure 12/08/20 Procedure Performed/Findings colonsoscopy Anesthesia Type mac Estimated Blood Loss Estimated blood loss (mL): minimal Specimens/Packing Specimens Removed none RANJITH LÓPEZ MD Dec 08, 2020 13:20
--- NOTE | 2020-12-08 13:22 | Discharge Inst-Surgical ---
D/C Lap Instructions-RENE Follow Up PRN Activity as tolerated High Fiber Diet 25g or more per day Avoid Alcohol, Caffeine, Spicy [place] and Acid foods. Drink 64 fluid oz or more of fluids per day. Symptoms to Report: Fever over 101 degree F, Nausea/Vomiting If any problems/questions: Contact your physician or go to Emergency Room RANJITH LÓPEZ MD Dec 08, 2020 13:22
--- NOTE | 2020-12-08 13:49 | Anesthesia-General Post-Op ---
MAC Patient Condition Mental Status/LOC: Same as Preop Cardiovascular: Satisfactory Nausea/Vomiting: Absent Respiratory: Satisfactory Pain: Controlled Complications: Absent Post Op Complications Complications None Follow Up Care/Instructions Patient Instructions None needed. Anesthesiology Discharge Order Discharge Order Patient is doing well, no complaints, stable vital signs, no apparent adverse anesthesia problems. No complications reported per nursing. ELIS ONEAL CRNA Dec 08, 2020 13:49
--- NOTE | 2020-12-08 17:42 | OPERATIVE REPORT ---
DATE OF SERVICE: 12/07/2020 ATTENDING PRIMARY CARE PHYSICIAN: Dr. Malik Yarbroguh. PREOPERATIVE DIAGNOSES: Abdominal distention, sigmoid colonic lesion, abdominal pain. PROCEDURE: Colonoscopy. SURGEON: Ranjith López MD. ANESTHESIA: Monitored anesthesia care. ESTIMATED BLOOD LOSS: Minimal. FINDINGS: Acute sigmoid diverticulitis. No neoplasms or polyps identified. Chronic stage II external and internal hemorrhoids. DISPOSITION: The patient tolerated the procedure well. INDICATIONS: The patient is a 55-year-old female who presented to [facility] with several day history of abdominal crampy pain and distention. She presented on two consecutive days. On the initial day, a CT scan was performed, which did show a significant amount of stool throughout the colon as well as mild thickening of the sigmoid colon. She presented the following day with abdominal distention and was unable to have any bowel movement or pass any flatus. She was admitted and given lactulose and clear liquids and was eventually able to have significant bowel movements. She does not report any red blood per rectum nor any dark tarry stools. She does report a longstanding history of constipation. She states that she did have a colonoscopy approximately 10 years ago, which she believes to be normal. DESCRIPTION OF PROCEDURE: The patient was brought to the endoscopy suite and laid in the left lateral decubitus position. After adequate IV pain and sedative medications and monitored anesthesia care, a digital rectal examination was performed. Mild chronic stage II external and internal hemorrhoids were identified, which were not actively edematous nor inflamed and no bleeding. Normal sphincter tone was felt and there were no palpable masses. The endoscope was then intubated into the anus and rectum gently insufflated. The endoscope was then advanced through the valves of Gary of the rectum with no polyps or any neoplasms identified. Through the sigmoid colon, significant diverticulosis identified as well as white patchy areas of acute on chronic inflammation within the diverticular pockets as well. This was consistent with diverticulitis as the finding on the CT scan. The endoscope was then gently advanced through the remainder of the descending, transverse and ascending colon to the cecum. These segments were normal. There were no polyps or any neoplasms identified throughout the colon or rectum. The endoscope was then slowly withdrawn while taking a second look and suctioning of residual air with no additional findings. The patient tolerated the procedure well. We will recommend the incorporation of a high fiber diet as well as a fiber supplementation, which should equal or exceed 30 grams daily as well as significant amounts of water to promote soft stools on a daily basis and to become less laxative and stool softener dependent. The endpoint should be the same and she should have a soft bowel movement on a daily basis. Job ID: [id number] DocumentID: [id number] Dictated Date: 12/08/2020 13:17:47 Ui Engineer Date: 12/08/2020 17:41:53 Dictated By: RANJITH LÓPEZ MD
== END 2020-12-08 15:30 | disposition home or self-care (01) | DRG 392 ==
LOC: EDUNIT# 22:13 → ER FS 22:14 → 4TH 12-07 01:45
PROVIDERS: ADMIT Surgery; ATTEND Surgery
PROC: 0DJD8ZZ Inspection of Lower Intestinal Tract, Via Natural or Artificial Opening Endoscopic (ICD-10-PCS; principal; 2020-12-08 12:43)
DX: K57.32 Diverticulitis of large intestine without perforation or abscess without bleeding (principal); K57.30 Diverticulosis of large intestine without perforation or abscess without bleeding; K58.9 Irritable bowel syndrome, unspecified; E03.9 Hypothyroidism, unspecified; K21.9 Gastro-esophageal reflux disease without esophagitis; K59.00 Constipation, unspecified; D72.829 Elevated white blood cell count, unspecified; F32.9 Major depressive disorder, single episode, unspecified; K63.9 Disease of intestine, unspecified; K64.1 Second degree hemorrhoids; K64.8 Other hemorrhoids
CPT/HCPCS: 36415; 80053; 83690; 85007; 85027